=== PATIENT | female | born 1955 | race American Indian/Alaskan Native ===

== ENCOUNTER 2021-05-05 02:52 | Emergency (ER) | payer MEDICAID ==
[2021-05-05] MEDS ORDERED: SODIUM CHLORIDE 0.9% 1000 ML 1,000 ML IV ONE (03:12)
[2021-05-05] MEDS ORDERED: levETIRAcetam 1000 MG/NS 0.75% 1,000 MG/100 ML BAG IV ONE (03:12)
--- NOTE | 2021-05-05 03:21 | Emergency Department Report ---
HPI - General Chief Complaint: Seizure Time Seen by Provider: 05/05/21 03:08 - HPI HPI: This is a 65-year-old female presents to the emergency department via EMS from home with complaint of a witnessed seizure just prior to presentation. The patient has a history of developmental delay and does have a history of recurrent seizures. This is the fourth seizure the patient has had. The last seizure was about 1 year ago. She is not on any medications for seizures. Her mother is currently at bedside providing information. Mom says that she is back at her baseline mentation. The patient is very selective on who she will talk to and mom says "she does not talk to me." Patient did not receive anything for symptoms prior to presentation. ED Past Medical Hx - Past Medical History Previous Medical History?: Yes Hx Seizures: Yes Additional medical history: mentally challenge - Surgical History Past Surgical History?: No ED Review of Systems ROS: Stated complaint: AMS Other details as noted in HPI Comment: Unobtainable due to pts medical conditions Neurological: other (Seizure) Physical Exam - Physical Exam Physical Exam: GENERAL: The patient is well-developed well-nourished. HENT: Normocephalic. Atraumatic. Patient has moist mucous membranes. EYES: Extraocular motions are intact. Pupils equal reactive to light bilatera lly. NECK: Supple. Trachea is midline. CHEST/LUNGS: Clear to auscultation. There is no respiratory distress noted. HEART/CARDIOVASCULAR: Regular. There is no tachycardia. There is no murmur. ABDOMEN: Abdomen is soft, nontender. Patient has normal bowel sounds. There is no abdominal distention. SKIN: Skin is warm and dry. NEURO: The patient is awake, alert and cooperative. MUSCULOSKELETAL: There is no tenderness or deformity. There is no limitation range of motion. ED Medical Decision Making - Lab Data Result diagrams: 05/05/21 03:41 05/05/21 03:41 Lab Results 05/05/21 05/05/21 05/05/21 Range/Units 03:41 03:41 03:41 WBC 8.1 (4.5-11.0) K/mm3 RBC 4.33 (3.65-5.03) M/mm3 Hgb 13.2 (10.1-14.3) gm/dl Hct 39.0 (30.3-42.9) % MCV 90 (79-97) fl MCH 31 (28-32) pg MCHC 34 (30-34) % RDW 14.2 (13.2-15.2) % Plt Count 348 (140-440) K/mm3 Lymph % (Auto) 13.2 L (13.4-35.0) % [place] % (Auto) 8.2 H (0.0-7.3) % Eos % (Auto) 0.2 (0.0-4.3) % Baso % (Auto) 0.6 (0.0-1.8) % Lymph # (Auto) 1.1 L (1.2-5.4) K/mm3 [place] # (Auto) 0.7 (0.0-0.8) K/mm3 Eos # (Auto) 0.0 (0.0-0.4) K/mm3 Baso # (Auto) 0.0 (0.0-0.1) K/mm3 Seg Neutrophils % 77.8 H (40.0-70.0) % Seg Neutrophils # 6.3 (1.8-7.7) K/mm3 Sodium 137 (137-145) mmol/L Potassium 3.4 L (3.6-5.0) mmol/L Chloride 99.6 (98-107) mmol/L Carbon Dioxide 25 (22-30) mmol/L Anion Gap 16 mmol/L BUN 21 H (7-17) mg/dL Creatinine 0.6 (0.6-1.2) mg/dL Estimated GFR > 60 ml/min BUN/Creatinine Ratio 35 % Glucose 95 (65-100) mg/dL Calcium 9.7 (8.4-10.2) mg/dL Total Bilirubin < 0.20 (0.1-1.2) mg/dL AST 16 (5-40) units/L ALT 12 (7-56) units/L Alkaline Phosphatase 95 (35-129) units/L Total Protein 7.3 (6.3-8.2) g/dL Albumin 4.4 (3.9-5) g/dL Albumin/Globulin Ratio 1.5 % TSH 4.130 (0.270-4.200) mlU/mL - EKG Data -: EKG Interpreted by Co EKG shows normal: sinus rhythm, axis, intervals, QRS complexes, ST-T waves Rate: normal - EKG Data When compared to previous EKG there are: previous EKG unavailable Interpretation: no acute changes - Medical Decision Making This patient presents after having a witnessed seizure prior to presentation. She does have some type of seizure disorder as this is the fourth seizure she h as had over the past few years. Mom is at bedside and says the patient is back at her baseline mentation upon presentation to the emergency department. The patient is often nonverbal with her history of developmental delay. Otherwise, there do not appear to be any acute neurological deficits seen. Patient was loaded with a gram of Keppra and given some IV fluid resuscitation. EKG does not show any morphology consistent with ST elevation myocardial infarction or any dysrhythmia. Labs have been mostly unremarkable including CBC, metabolic panel, normal thyroid function. The patient has been reevaluated multiple times over about 3 hours and there has been no further seizure-like activity or any worsening of her symptoms. For all these reasons the patient appears safe for discharge home at this time. She has been instructed to follow-up with her PCP and has been given an outpatient referral for neurology. She will return to the emergency department with any further seizure-like activity, worsening of her symptoms, or with any acute distress. Critical Care Time: No Critical care attestation.: If time is entered above; I have spent that time in minutes in the direct care of this critically ill patient, excluding procedure time. ED Disposition Clinical Impression: Seizure Disposition: 01 HOME / SELF CARE / HOMELESS Is pt being admited?: No Condition: Stable Instructions: Seizure, Adult Additional Instructions: Please follow-up with your primary care physician in the next few days. I have also given you a referral for a local neurologist, Dr. Garcias, to follow-up regarding your seizure. Please avoid any alcohol or excessive caffeine use. Try to get 8 hours of uninterrupted sleep at night. Because of the seizure, you should not drive or operate any heavy machinery for at least 6 months or until cleared by a PCP or neurologist. Return to the emergency department with any worsening of your symptoms, new or concerning symptoms not addressed during this current emergency department visit, or with any acute distress. Referrals: PRIMARY MD JOHN [Primary Care Provider] - 2-3 Days RELL GARCIAS MD [Referring] - 2-3 Days Time of Disposition: 06:06
[2021-05-05 04:26] LABS: Alanine Aminotransferase 12 units/L (7-56); Albumin 4.4 g/dL (3.9-5); Blood Urea Nitrogen 21 mg/dL (7-17); Calcium 9.7 mg/dL (8.4-10.2); Hemolysis Index 3
[2021-05-05 04:27] LABS: BUN/Creatinine Ratio 35
[2021-05-05 04:31] LABS: Basophils % (Auto) 0.6 % (0.0-1.8); Eosinophils % (Auto) 0.2 % (0.0-4.3); Hemoglobin 13.2 gm/dl (10.1-14.3); Lymphocytes # (Auto) 1.1 K/mm3 (1.2-5.4); Lymphocytes % (Auto) 13.2 % (13.4-35.0); Mean Corpuscular HGB Conc 34 % (30-34); Mean Corpuscular Volume 90 fl (79-97); Monocytes # (Auto) 0.7 K/mm3 (0.0-0.8); Monocytes % (Auto) 8.2 % (0.0-7.3); Platelet Count 348 K/mm3 (140-440); Red Blood Count 4.33 M/mm3 (3.65-5.03); Red Cell Distribution Width 14.2 % (13.2-15.2)
[2021-05-05] MEDS ORDERED: POTASSIUM CHLORIDE ER 20 MEQ TAB PO ONE (04:50)
[2021-05-05 06:19] VITALS: BP 134/70
[2021-05-05] MEDS ORDERED: POTASSIUM CHLORIDE 20 MEQ PACKET PO ONE (06:30)
--- NOTE | 2021-05-07 08:53 | Electrocardiograph Report ---
[facility] Test Date: 2021-05-05 Test Time: 03:32:40 Pat Name: ADELINA TALBOT Department: Room: Gender: F Security Operations Engineer: RACHAEL : 1955 Requested By: YUE BACK Order Number: [id number] Reading MD: Mino Fernández Measurements Intervals [place] Rate: 87 P: 50 MI: 160 QRS: 1 QRSD: 79 T: 67 QT: 369 QTc: 444 Interpretive Statements Sinus rhythm Probable left atrial enlargement No previous ECG available for comparison Electronically Signed On 05-07-2021 8:52:48 EDT by Mino Fernández
== END 2021-05-05 07:31 | disposition home or self-care (01) ==
LOC: EDBD 02:52 → ED 02:52
DX: G40.909 Epilepsy, unspecified, not intractable, without status epilepticus (principal); Z79.899 Other long term (current) drug therapy; Z86.69 Personal history of other diseases of the nervous system and sense organs
CPT/HCPCS: 36415; 80053; 84443; 85025; 93005; 96365; 99284; J1953; J7030